=== PATIENT | female | born 1950 | race Hispanic/Latino ===

== ENCOUNTER 2018-09-23 11:38 | Outpatient (CLI) | payer MEDICARE ==
--- NOTE | 2018-09-24 10:55 | Mammography Report ---
BONE DEXA:09/23/18 11:38:00 CLINICAL: Postmenopausal. COMPARISON: 03/28/16 TECHNIQUE: Two site bone DEXA performed on an Hologic scanner. FINDINGS: The average BMD of the lumbar spine L1-L4 is 0.866g/cm squared with a T-score of -1.6 and a Z-score of +0.4. This compares to 0.843g/cm squared on the last exam and represents a +2.7% change from the previous baseline. The average BMD of the left hip is 0.805g/cm squared with a T-score of -1.1 and a Z-score of +0.4. This compares to 0.761g/cm squared on the last exam and represents a +5.8% change from the previous baseline. However, the left neck BMD is 0.548g/cm squared with a T score of -2.7 and a Z score of -0.9. IMPRESSION: 1. WHO classification: Osteopenia with increased fracture risk based on lumbar spine and total left hip measurements. 2. WHO classification: Osteoporosis with high fracture risk based on left femoral neck measurements. 3. A moderate improvement in both spine and left hip BMD compared to the previous exam. However, discordance between spine and total left hip measurements compared to left femoral neck measurement which is indicative of osteoporosis. RECOMMENDATION: Clinical correlation and routine screening. DEFINITIONS: BMD = Bone Mineral Density T-score = BMD related to mean peak bone mass of young adult (mean expressed in Standard Deviation) Z-score = Age matched BMD expressed in SD World Health Organization (WHO) Diagnostic Criteria Normal T-score > -1 SD Osteopenia T-score between -1 and -2.4 SD Osteoporosis T-score -2.5 SD or below NOTE: BMD is not the only risk factor for fracture; also consider factors such as the patient's age, risk of falling, previous osteoporotic fracture, family history of osteoporotic fractures, current smoker, and low body weight. Z-scores are not calculated if >80 years of age.
== END 2018-09-23 11:39 | disposition home or self-care (01) ==
LOC: SPVWC 11:38
PROVIDERS: ATTEND Family Medicine
DX: M81.0 Age-related osteoporosis without current pathological fracture (principal); M85.88 Other specified disorders of bone density and structure, other site; Z78.0 Asymptomatic menopausal state
CPT/HCPCS: 77080